=== PATIENT | male | born 1975 | race Caucasian/White ===

== ENCOUNTER 2020-09-10 09:09 | Inpatient (IN) | payer BC, SELFPAY ==
[2020-09-10 09:15] VITALS: BP 120/84; PULSE 97; RESP 18; TEMP 36.2; O2SAT 97; BMI 30.2
--- NOTE | 2020-09-10 09:56 | ED_ITS ---
HPI - Psych General Chief Complaint: Psychiatric Symptoms Stated Complaint: CRISIS Time Seen by Provider: 09/10/20 09:50 History of Present Illness HPI Narrative: Patient comes to the emergency room complaining of worsening anxiety and depression. Patient states that he has vague suicidal thoughts, states that he would really like to hurt himself but has no plan. Patient states he started sertraline approximately 4 weeks ago and is not sure if the medication is working. Some days he feels well but sometimes he feels depressed as today. Patient states he has had prior suicidal attempts in the past. Patient states he is compliant with his medication, occasionally forgets but ta kes his meds almost daily. Related Data Allergies Allergy/AdvReac Type Severity Reaction Status Date / Time No Known Allergies Allergy Verified 09/10/20 09:18 [No Known Allergies*] Review of Systems Review of Systems: Constitutional : No Weight loss, No Fever, No Chills, No Night Sweats, No Fatigue, No Malaise ENT/Mouth : No Hearing loss, No Ear Pain, No Nasal Congestion, No Sinus Pain, No Hoarseness, No sore throat, No Rhinorrhea, No Swallowing Difficulty Eyes: No Eye Pain, No Swelling, No Redness, No Foreign Body, No Discharge, No Vision Changes Cardiovascular : No Chest Pain, No SOB, No Dyspnea on Exertion, No Orthopnea, No Edema, No Palpitations Respiratory : No Cough, No Sputum, No Wheezing, No Smoke Exposure, No Dyspnea Gastrointestinal : No Nausea, No Vomiting, No Diarrhea, No Constipation, No abdominal Pain, No Hematochezia, No Melena Genitourinary : no irregular bleeding, No Dysuria, No Urinary Frequency, No Hematuria, No Urinary Incontinence, No Urgency, No Flank Pain, No Urinary Flow Changes, No Hesitancy Musculoskeletal : No joint pain, No Myalgias, No Joint Swelling Skin : No Skin Lesions, No rash Neuro : No Weakness, No Numbness, No Paresthesias, No Loss of Consciousness, No Dizziness, No Headache Psych : Complaining of anxiety and depression, no homicidal ideation Heme/Lymph: No Bruising, No Bleeding,No Lymphadenopathy Endocrine : No Polyuria, No Polydipsia, No Temperature Intolerance PMFSH Past Medical History Medical History Depression Diabetes Social History Social History Advance Directives: Yes Advance Directives Information Provided: Yes Advance Directives on File: No Physical Exam Vital Signs: Vital Signs: Last Vital Signs Temp 97.1 F 09/10/20 09:15 Pulse 97 09/10/20 09:15 Resp 18 09/10/20 09:15 BP 120/84 09/10/20 09:15 Pulse Ox 97 09/10/20 09:15 Body Mass Index 30.2 Appearance: Alert. Oriented X3. No acute distress. Eyes: Pupils equal, round and reactive to light. ENT: Pharynx normal. Neck: Normal inspection. Neck supple. No lymph nodes noted. No crepitus CVS: Normal heart rate and rhythm. Pulses normal. Normal S1 and S2 Respiratory: No respiratory distress. Breath sounds normal. No Wheezing. No rales Abdomen: Soft and nontender. No rigidity. No distention. good BS x4 Skin: Skin warm and dry. Normal skin color. Normal skin turgor. Extremities: No lower extremity edema. No lower extremity edema. No Lacerations. No Rash Neuro: Oriented X 3. Cranial nerves 2-12 grossly intact. No motor deficit. No sensory deficit. Moving all extermities. No slurred speech. Psych: Normal speech, normal train of thought Course Course Course Narrative: Behavioral health network consult pending At this time physician supervision is started, behavioral health at work consult pending.
[2020-09-10 10:08] VITALS: BP 103/66; PULSE 86; TEMP 36.7; O2SAT 97
[2020-09-10 10:40] LABS: Glucose Urine UA >=1000 MG/DL (NEG); Leukocyte Esterase Urine NEG (NEG); Nitrite Urine NEG (NEG); Urine Blood NEG (NEG); Urine Ketones 15 MG/DL (NEG); Urine Protein TRACE MG/DL (NEG-TRACE)
[2020-09-10 10:42] LABS: Appearance Urine CLEAR; Color Urine YELLOW
[2020-09-10 10:48] LABS: RBC Urine 0 /HPF (0); WBC Urine 0 /HPF (0-4)
--- NOTE | 2020-09-10 10:50 | PC.NURSE ---
spoke with Kayden from CARE team, a member of the team will be over to assess the pt.
--- NOTE | 2020-09-10 10:51 | PC.NURSE ---
PT BELONGINGS IN LOCKER 10 - pt cell phone with g/f, he monitors his insulin through his phone with a sensor in his L upper arm. Dr. Zapata oked the sensor to stay on the pt.
[2020-09-10] MEDS: Acetaminophen 325 MG TABLET 650 MG PO (11:00)
[2020-09-10 11:12] LABS: Amphetamine Screen Urine Not Detected (Not Detect); Barbiturates, Urine Not Detected (Not Detect); Benzodiazepines Screen Urine Not Detected (Not Detect); Cannabinoid Screen Urine Not Detected (Not Detect); Cocaine Screen Urine Not Detected (Not Detect); Opiate Screen Urine Not Detected (Not Detect); Phencyclidine Screen Urine Not Detected (Not Detect)
[2020-09-10 14:32] VITALS: BP 109/73; PULSE 80; O2SAT 96
--- NOTE | 2020-09-10 14:38 | MHC.CARE ---
CARE Team evaluated patient in ED 6, the recommendation is for inpatient psychiatric care. At this time he is in agreement and there will be an available bed for him here tomorrow, if he changes his mind and wants to leave then a CARE swat team member can talk to patient and his to conduct a safety plan. Providers updated and in agreement with this plan.
--- NOTE | 2020-09-10 15:09 | PHA.MEDREC ---
Pharmacy Consult ? Medication Reconciliation Pharmacy has completed the medication reconciliation.
[2020-09-10 16:34] VITALS: BP 117/61; PULSE 99; RESP 18; TEMP 36.7; O2SAT 95
[2020-09-10 18:53] VITALS: BP 109/62; PULSE 91; RESP 16; TEMP 37.1; O2SAT 95
--- NOTE | 2020-09-10 19:15 | PC.NURSE ---
ASSUMED CARE OF PT. PT REQUESTING PAULA PATRICIA. PT DENIES ANY OTHER COMPLAINTS. RESPIRATIONS EASY, N/L. PT REMAINS CALM AND COOPERATIVE IN ED. WILL CONTINUE TO MONITOR PT.
--- NOTE | 2020-09-10 22:00 | PC.NURSE ---
PT RESTING IN STRETCHER WATCHING TV. PT DENIES COMPLAINTS, SITTER AT BEDSIDE FOR OBS. WILL CONTINUE TO MONITOR PT.
[2020-09-10 22:24] VITALS: BP 114/68; PULSE 72; RESP 16; O2SAT 96
[2020-09-11] VITALS (8 sets, daily range): BP systolic 109–139; BP diastolic 70–84; PULSE 70–108; RESP 16–18; TEMP 36.7–36.9; O2SAT 97–98
--- NOTE | 2020-09-11 00:39 | PC.NURSE ---
PT SLEEPING AT THIS TIME WITH SITTER AT BEDSIDE WITH PT.
--- NOTE | 2020-09-11 02:28 | PC.NURSE ---
PT RESTING, WAKES TO VOICE W/O COMPLAINTS. WILL CONTINUE TO MONITOR PT.
--- NOTE | 2020-09-11 07:23 | PC.NURSE ---
Patient is lying in bed watching tv in no distress. Pt denies any SI, or HI this morning.
--- NOTE | 2020-09-11 09:17 | PC.NURSE ---
Patient is lying in bed watching tv in no distress
[2020-09-11] MEDS: Sertraline HCL 100 MG TABLET PO (10:09)
--- NOTE | 2020-09-11 10:53 | ECG_ITS ---
Test Reason : MEDICAL CLEARANCE Blood Pressure : / mmHG Vent. Rate : 081 BPM Atrial Rate : 081 BPM P-R Int : 140 ms QRS Dur : 088 ms QT Int : 370 ms P-R-T Axes : 055 049 016 degrees QTc Int : 429 ms Normal sinus rhythm with sinus arrhythmia Normal ECG No significant changes when compared with the previous EKG of 22 jan 2019 Referred By: Scott Herrera Electronically Signed By:JORGITO MORTON
[2020-09-11 11:15] LABS: MANUAL DIFF FLAG NO
[2020-09-11 11:17] LABS: Basophils Percent Auto 0.3 % (0-2); Eosinophils Absolute Auto 0.1 X10*3/uL (0.0-0.4); Eosinophils Percent Auto 0.7 % (0-4); Hematocrit 49.1 % (42-52); Hemoglobin 16.2 g/dl (14.0-18.0); Imm Gran Abs Auto 0.03 X10*3/uL (0.00-0.03); Imm Gran Pct Auto 0.3 % (0.0-0.4); Lymphocytes Absolute Auto 2.2 X10*3/uL (1.2-4.9); Mean Corpuscular Hemoglobin 27.7 pg (27.0-33.0); Mean Corpuscular Volume 84.1 fL (80-98); Mean Platelet Volume 9.9 fL (9.4-12.4); Monocytes Absolute Auto 0.7 X10*3/uL (0.1-1.2); Monocytes Percent Auto 7.8 % (2-11); Neutrophils Absolute Auto 5.8 X10*3/uL (2.0-8.3); Neutrophils Percent Auto 65.9 % (45-73); Platelet Count 268 X10*3/uL (160-400); Red Blood Count 5.84 X10*6/uL (4.60-5.80); Red Cell Distribution Width 12.3 % (11.0-16.0); White Blood Count 8.8 X10*3/uL (4.8-10.8)
[2020-09-11 11:41] LABS: Alanine Aminotransferase 21 U/L (0-40); Albumin Level 4.7 g/dL (3.5-5.0); Alkaline Phosphatase 100 U/L (39-117); Anion Gap 15 (12-20); Aspartate Amino Transferase 19 U/L (5-37); Bilirubin Total 0.9 mg/dL (0.0-1.0); Blood Urea Nitrogen 15 mg/dL (9-16); Calcium 10.1 mg/dL (8.4-10.2); Carbon Dioxide 25 mmol/L (22-29); Chloride 103 mmol/L (96-108); Creatinine Clr Calc Pharmacy 103.8; Estimated Glomerular Filt Rate > 60; Glucose Random 155 mg/dL (60-115); Potassium 4.2 mmol/L (3.3-5.1); Sodium 139 mmol/L (135-145); Total Protein 8.1 g/dL (6.5-8.0)
--- NOTE | 2020-09-11 12:04 | PC.NURSE ---
Son at bedside and has brought patients weekly dose of Trulicity. ED provider is aware and verbally aproves of patient given himself the injection. Pt administered 0.75mg or trulicity subcu in right upper arm
[2020-09-11 12:06] LABS: COVID-19 Test Negative (Negative); IDNOW Serial# 9DD0AD1C
--- NOTE | 2020-09-11 12:20 | PC.NURSE ---
Nurse to Nurse report given for patient to be moved to behavioral health unit.
--- NOTE | 2020-09-11 13:16 | PC.NURSE ---
Patient is lying in bed watching tv in no distress. Pt is calm and cooperative.
--- NOTE | 2020-09-11 14:17 | PC.NURSE ---
Care team here to transport patient to room 324 via wheelchair. Pt is alert and in no distress.
--- NOTE | 2020-09-11 15:40 | PC.ADMIT ---
PT admitted to unit at 1420 on a conditional voluntary for major depressive disorder and anxiety. PT states that he just wants to take some time and work on himself and how he is feeling. PT reported passive SI with no plan. Pt states that his anxiety and depression have been increasing and that he started sertraline 1 month ago and states that he does not think it is helping. PT states this is his first inpatient admission. PT asked if he would be leaving on Tuesday, when inpaitent process explained PT stated that he was told he would only be here until Tuesday, PT was offered a 3 day letter and declined to sign it stating that he wants to leave at this time. PT is covid negative, tox screen was negative. 15 minute checks initiated
[2020-09-11] MEDS: traZODone HCL 50 MG TABLET PO (20:46)
[2020-09-11] MEDS: Atorvastatin Calcium 20 MG TABLET PO (20:46)
[2020-09-11] MEDS: QUEtiapine Fumarate 25 MG TABLET PO (20:46)
--- NOTE | 2020-09-11 21:55 | PC.NURSE ---
Pt requested to and signed a 3 day notice, which will be up on 09/16. Pt verbalized understanding of form.
[2020-09-12 06:37] LABS: Glucose, Whole Blood 188 mg/dL (60-115)
[2020-09-12 07:11] LABS: Estimated Average Glucose 180 mg/dL; Hemoglobin A1c % 7.9 %
[2020-09-12 07:29] LABS: Alanine Aminotransferase 19 U/L (0-40); Albumin Level 4.6 g/dL (3.5-5.0); Alkaline Phosphatase 97 U/L (39-117); Aspartate Amino Transferase 16 U/L (5-37); Bilirubin Direct 0.4 mg/dL (0.0-0.5); Bilirubin Total 0.9 mg/dL (0.0-1.0); Cholesterol 144 mg/dL; HDL Cholesterol 39 mg/dL; LDL Cholesterol Calculated 85 mg/dl; Total Protein 7.8 g/dL (6.5-8.0); Triglycerides 101 mg/dL
[2020-09-12 07:50] LABS: Free T4 (Free Thyroxine) 0.92 ng/dL (0.71-1.85); Thyroid Stimulating Hormone 0.69 uIU/mL (0.32-4.0)
[2020-09-12 08:02] LABS: Folate 15.9 ng/mL (> or = 4.0); Vitamin B12 250 pg/mL (200-900)
[2020-09-12 08:53] VITALS: BP 118/74; PULSE 81; RESP 18; TEMP 36.8; O2SAT 98
[2020-09-12 08:56] VITALS: BP 118/74; PULSE 81
[2020-09-12] MEDS: Sertraline HCL 100 MG TABLET PO (08:56)
[2020-09-12 09:52] VITALS: BP 118/74; PULSE 81; RESP 18; TEMP 36.8; O2SAT 98
--- NOTE | 2020-09-12 14:07 | P.HPPS_ITS ---
HPI Chief Complaint: SI Sources of Information: patient interviewed, chart reviewed and crisis/core team assessment reviewed HPI Subjective Notes: 3 Day Narrative: Mr. Angel is a 45 year-old male with hx of MDD who self presented to [facility] ED reporting increased depression, feeling restless, suicidal ideation, feeling worthless. In the ED, his utox was negative. On the unit, Pt reports depression started about 2 years ago. He reports most recently he has been increasingly feeling inadequate or not doing enough for his family despite family telling him that he is caring and father. He reports he has a daughter with whom he had little contact growing up and this daughter came about 4 years ago to live with him but then she did not last more than a month with him and she left and it's been 4 years that he does not know how she is doing. He can't identify any recent stressors. He reports his relationship with his of 22 years is great. He reports his is supportive and caring. They have a 19 year-old son who lives with them and he is doing fine. He denies hx of substance use. He also denies hx of VH/AH. He denies signs of hypomania such as periods of time with increase energy, decrease need for sleep, engaging in risky behaviors, elated mood, or grandiose delusions. He has a stable job where he has been for past 3 years. He was somewhat irritable and upset when first brought to unit because he did not have a single room, felt he was lied to while in ED due to informaiton he was given. He was asking for discharged and minimizing degree of depression. He recently started sertraline Past Psychiatric History: OP: PETRA Padron at [facility] IP: none Suicide attempts: per few weeks ago tried to jump off moving car. Past medication trials: sertraline Medical Evaluation Reviewed: Yes [facility] Medical History Depression Diabetes Family History: none Social History: lives with of 22 years. He has two daughters from previous relationships ages 29 and 23 (doesn't have communication with 23 y/o) and son age 19 with current . Substance History: denies Trauma History: denies Diagnostics Vital Signs (24Hr): Vital Signs - 24 hr 09/11/20 14:49 09/11/20 20:48 09/12/20 08:53 Temperature 98.5 F 98.1 F 98.3 F Pulse Rate 108 H 93 81 Respiratory Rate 18 18 Blood Pressure 135/77 132/84 118/74 Pulse Oximetry 97 97 98 09/12/20 08:56 09/12/20 09:52 Temperature 98.3 F Pulse Rate 81 81 Respiratory Rate 18 Blood Pressure 118/74 118/74 Pulse Oximetry 98 Body Mass Index 30.2 Labs Results: 09/11/20 11:12 09/11/20 11:12 Labs: Laboratory Results - last 48 hr 09/11/20 09/11/20 09/11/20 11:12 11:12 11:46 WBC 8.8 RBC 5.84 H Hgb 16.2 Hct 49.1 MCV 84.1 MCH 27.7 MCHC 33.0 RDW 12.3 Plt Count 268 MPV 9.9 Immature Gran % (Auto) 0.3 Neut % (Auto) 65.9 Lymph % (Auto) 25.0 [place] % (Auto) 7.8 Eos % (Auto) 0.7 Baso % (Auto) 0.3 Lymph # (Auto) 2.2 [place] # (Auto) 0.7 Eos # (Auto) 0.1 Baso # (Auto) 0.0 Abs Immat Gran (auto) 0.03 Absolute Neuts (auto) 5.8 Absolute Nucleated RBC 0.000 Nucleated RBC % (auto) 0.0 Sodium 139 Potassium 4.2 Chloride 103 Carbon Dioxide 25 Anion Gap 15 BUN 15 Creatinine 0.98 Estim Creat Clear Calc 103.8 Estimated GFR > 60 POC Glucose Random Glucose 155 H Estimat Average Glucose Hemoglobin A1c % Calcium 10.1 Total Bilirubin 0.9 Direct Bilirubin AST 19 ALT 21 Alkaline Phosphatase 100 Total Protein 8.1 H Albumin 4.7 Triglycerides Cholesterol LDL Cholesterol, Calc HDL Cholesterol Vitamin B12 Folate TSH Free T4 COVID-19 ([facility]ONARDO) Negative COVID-19 Clin Com See Note 09/12/20 09/12/20 09/12/20 06:33 06:53 06:53 WBC RBC Hgb Hct MCV MCH MCHC RDW Plt Count MPV Immature Gran % (Auto) Neut % (Auto) Lymph % (Auto) [place] % (Auto) Eos % (Auto) Baso % (Auto) Lymph # (Auto) [place] # (Auto) Eos # (Auto) Baso # (Auto) Abs Immat Gran (auto) Absolute Neuts (auto) Absolute Nucleated RBC Nucleated RBC % (auto) Sodium Potassium Chloride Carbon Dioxide Anion Gap BUN Creatinine Estim Creat Clear Calc Estimated GFR POC Glucose 188 H Random Glucose Estimat Average Glucose 180 Hemoglobin A1c % 7.9 Calcium Total Bilirubin 0.9 Direct Bilirubin 0.4 AST 16 ALT 19 Alkaline Phosphatase 97 Total Protein 7.8 Albumin 4.6 Triglycerides 101 Cholesterol 144 LDL Cholesterol, Calc 85 HDL Cholesterol 39 Vitamin B12 Folate TSH 0.69 Free T4 0.92 COVID-19 ([facility]ONARDO) COVID-19 [employer] Com 09/12/20 06:53 WBC RBC Hgb Hct MCV MCH MCHC RDW Plt Count MPV Immature Gran % (Auto) Neut % (Auto) Lymph % (Auto) [place] % (Auto) Eos % (Auto) Baso % (Auto) Lymph # (Auto) [place] # (Auto) Eos # (Auto) Baso # (Auto) Abs Immat Gran (auto) Absolute Neuts (auto) Absolute Nucleated RBC Nucleated RBC % (auto) Sodium Potassium Chloride Carbon Dioxide Anion Gap BUN Creatinine Estim Creat Clear Calc Estimated GFR POC Glucose Random Glucose Estimat Average Glucose Hemoglobin A1c % Calcium Total Bilirubin Direct Bilirubin AST ALT Alkaline Phosphatase Total Protein Albumin Triglycerides Cholesterol LDL Cholesterol, Calc HDL Cholesterol Vitamin B12 250 Folate 15.9 TSH Free T4 COVID-19 ([facility]ONARDO) COVID-19 [employer] Com Meds/Allergies Meds Home Medications Acetaminophen (Acetaminophen 325 Mg Tablet) 650 mg PO Q6H PRN PRN Reason: Headache/Pain Mild Scale (1-3) Al Hydroxide/Mg Hydroxide (Magnesium Hydrox/Alum Hydrox 30 Ml Oral.Susp) 30 ml PO Q6H PRN PRN Reason: Heartburn/Nausea Albuterol Sulfate (Albuterol Sulfate 90 Mcg 8 Gm Inhaler) 2 puff INHALE QID PRN PRN Reason: wheezing Atorvastatin Calcium (Atorvastatin Calcium 20 Mg Tablet) 20 mg PO BEDTIME MIRIAN Last Admin: 09/11/20 20:46 Dose: 20 mg Documented by: Hydroxyzine HCl (Hydroxyzine Hcl 25 Mg Tablet) 25 mg PO Q6H PRN PRN Reason: Anxiety Lisinopril (Lisinopril 5 Mg Tablet) 5 mg PO DAILY MIRIAN; Protocol Last Admin: 09/12/20 08:56 Dose: 5 mg Documented by: Magnesium Hydroxide (Milk Of Magnesia 30 Ml Oral.Susp) 30 ml PO DAILY PRN PRN Reason: Constipation Non-Formulary Medication (Empagliflozin [Jardiance]) 1 tab PO DAILY [facility] Pharmacy Consult (Consult Rx Perform Med Rec) 1 each MISCELLANE ONCE PRN PRN Reason: Consult order Quetiapine Fumarate (Quetiapine Fumarate 25 Mg Tablet) 25 mg PO BEDTIME [facility] Last Admin: 09/11/20 20:46 Dose: 25 mg Documented by: Sertraline HCl (Sertraline Hcl 100 Mg Tablet) 100 mg PO DAILY [facility] Last Admin: 09/12/20 08:56 Dose: 100 mg Documented by: Trazodone HCl (Trazodone Hcl 50 Mg Tablet) 50 mg PO BEDTIME PRN PRN Reason: Insomnia Last Admin: 09/11/20 20:46 Dose: 50 mg Documented by: Allergies Allergies Allergy/AdvReac Type Severity Reaction Status Date / Time No Known Allergies Allergy Verified 09/10/20 09:18 [No Known Allergies*] Mental Status Exam Mental Status Exam Narrative: Appearance: casually groomed, fair hygiene in NAD Behavior:cooperative psychomotor:no agitation or retardation noted Speech:clear, normal rate/rhythm/volume, spontaneous Thought process:linear Thought content:no signs of psychosis, wanting to go home, feeling better Mood: better Affect: brighter, non labile SI:denies HI:none VH/AH:none Delusions:none Memory/cog: alert, oriented x 3. grossly intact to conversational testing. Assessment & Plan Assessment & Plan (1) MDD (major depressive disorder), recurrent episode, moderate: Status: Acute Code(s): F33.1 - Major depressive disorder, recurrent, moderate Assessment and Plan: Mr. Angel is a 45 year-old male who self presented to [facility] ED reporting increase depression, suicidal ideation, anxious. Some degree of irritability, impulsivity noted. This is his first inpatient psychiatric admission. We discussed risks, benefits alternative treatment options. PLAN 1. increase sertraline to 100mg po daily. 2. obtain collateral information 3. aftercare planning. Reason for continued inpatient stay Substantial Risk for: harm to self
[2020-09-12 20:05] VITALS: BP 121/78; PULSE 95; RESP 18; TEMP 36.6; O2SAT 95
[2020-09-12] MEDS: Atorvastatin Calcium 20 MG TABLET PO (21:34)
[2020-09-12] MEDS: QUEtiapine Fumarate 50 MG TABLET PO (21:34)
[2020-09-12] MEDS: traZODone HCL 50 MG TABLET PO (21:34)
[2020-09-12 21:45] LABS: Glucose, Whole Blood 180 mg/dL (60-115)
[2020-09-13 08:00] VITALS: BP 123/74; PULSE 84; RESP 16; TEMP 36.8; O2SAT 97
[2020-09-13 09:18] VITALS: BP 123/74; PULSE 100
[2020-09-13] MEDS: Sertraline HCL 100 MG TABLET PO (09:18)
[2020-09-13 10:26] LABS: Glucose, Whole Blood 253 mg/dL (60-115)
--- NOTE | 2020-09-13 19:42 | P.PNPSI_ITS ---
Subjective Subjective Date of Service: 09/13/20 Reason For Visit: SI Subjective Notes: Conditional Voluntary Guardianship: No Medical Problems Affecting Mental Status: No Interim History: Patient seen. DW team. Patient reports he is feeling happy. He says his son was approached by the [employer] to pitch. He is in college now. Patient says this piece of news made him very happy. He says he would like to leave. DW patient that he had just arrived and he will need to be observed. He had signed a 3 day notice. He is reported to minimize his symptoms. He denies SI/HI. Medication Compliance: Yes Side effects from medications: No Attending Groups: No Review of Systems Acute medical concerns: No Medical Review of Systems: unchanged Review of Systems Review of Systems Yes all other systems are reviewed and are negative Mental Status Exam Mental Status Exam Patient Appearance: Well Grooomed and Appropriate Patient Orientation: Person, Place, Time and Situation Level of Consciousness: Awake Patient Behavior: Appropriate, Cooperative and Good Eye Contact Mood Description: Calm, Happy and Cheerful Affect Description: Happy and Appropriate Patient Cognition Impaired: No Ability to Follow Directions: Good Speech Pattern: Clear, Appropriate and Coherent Memory Description: Intact Hallucinations: None Delusions: Not Present Thought Process: Intact, Goal Oriented and Linear Thought Content: positive for Intact, positive for Linear and positive for Suicidal Ideation Judgement: Fair Diagnostics Vital Signs (24Hr): Vital Signs - 24 hr 09/12/20 20:05 09/13/20 08:00 09/13/20 09:18 Temperature 97.9 F 98.2 F Pulse Rate 95 84 100 Respiratory Rate 18 16 Blood Pressure 121/78 123/74 123/74 Pulse Oximetry 95 97 Body Mass Index 30.2 Labs Results: 09/11/20 11:12 09/11/20 11:12 Labs: Laboratory Results - last 48 hr 09/12/20 09/12/20 09/12/20 06:33 06:53 06:53 POC Glucose 188 H Estimat Average Glucose 180 Hemoglobin A1c % 7.9 Total Bilirubin 0.9 Direct Bilirubin 0.4 AST 16 ALT 19 Alkaline Phosphatase 97 Total Protein 7.8 Albumin 4.6 Triglycerides 101 Cholesterol 144 LDL Cholesterol, Calc 85 HDL Cholesterol 39 Vitamin B12 Folate TSH 0.69 Free T4 0.92 09/12/20 09/12/20 09/13/20 06:53 21:33 10:23 POC Glucose 180 H 253 H Estimat Average Glucose Hemoglobin A1c % Total Bilirubin Direct Bilirubin AST ALT Alkaline Phosphatase Total Protein Albumin Triglycerides Cholesterol LDL Cholesterol, Calc HDL Cholesterol Vitamin B12 250 Folate 15.9 TSH Free T4 Medications Medications Current Medications Generic Name Dose Route Start Last Admin Trade Name Freq PRN Reason Stop Dose Admin Acetaminophen 650 mg 09/11/20 13:09 Acetaminophen 325 Mg Tablet PO Q6H PRN Headache/Pain Mild Scale (1-3) Al Hydroxide/Mg Hydroxide 30 ml 09/11/20 13:09 Magnesium Hydrox/Alum Hydrox 30 Ml Oral.Susp PO Q6H PRN Heartburn/Nausea Albuterol Sulfate 2 puff 09/11/20 09:28 Albuterol Sulfate 90 Mcg 8 Gm Inhaler INHALE QID PRN wheezing Atorvastatin Calcium 20 mg 09/11/20 21:00 09/12/20 21:34 Atorvastatin Calcium 20 Mg Tablet PO 20 mg BEDTIME MIRIAN Administration Hydroxyzine HCl 25 mg 09/11/20 13:09 Hydroxyzine Hcl 25 Mg Tablet PO Q6H PRN Anxiety Lisinopril 5 mg 09/11/20 10:00 09/13/20 09:18 Lisinopril 5 Mg Tablet PO 5 mg DAILY MIRIAN Administration Protocol Magnesium Hydroxide 30 ml 09/11/20 13:09 Milk Of Magnesia 30 Ml Oral.Susp PO DAILY PRN Constipation Non-Formulary Medication 1 tab 09/11/20 09:30 Empagliflozin [Jardiance] PO DAILY [facility] Pharmacy Consult 1 each 09/10/20 14:52 Consult Rx Perform Med Rec MISCELLANE ONCE PRN Consult order Quetiapine Fumarate 50 mg 09/12/20 21:00 09/12/20 21:34 Quetiapine Fumarate 50 Mg Tablet PO 50 mg BEDTIME MIRIAN Administration Sertraline HCl 100 mg 09/11/20 09:30 09/13/20 09:18 Sertraline Hcl 100 Mg Tablet PO 100 mg DAILY MIRIAN Administration Trazodone HCl 50 mg 09/11/20 13:09 09/12/20 21:34 Trazodone Hcl 50 Mg Tablet PO 50 mg BEDTIME PRN Administration Insomnia Allergies Allergies Allergy/AdvReac Type Severity Reaction Status Date / Time No Known Allergies Allergy Verified 09/10/20 09:18 [No Known Allergies*] Assessment & Plan Assessment & Plan (1) MDD (major depressive disorder), recurrent episode, moderate: Status: Acute Code(s): F33.1 - Major depressive disorder, recurrent, moderate Assessment and Plan: Mr. Angel is a 45 year-old male who self presented to [facility] ED reporting increase depression, suicidal ideation, anxious. Some degree of irritability, impulsivity noted. This is his first inpatient psychiatric admission. We discussed risks, benefits alternative treatment options. PLAN 1. Continue Zoloft 100 mg daily. 2. obtain collateral information 3. aftercare planning. Greater than 50% of the session was spent on counseling and/or coordination of care Reason for contiued inpatient stay Substantial Risk for: harm to self
[2020-09-13 20:50] VITALS: BP 117/74; PULSE 82; RESP 16; TEMP 36.3; O2SAT 98
[2020-09-13 21:11] LABS: Glucose, Whole Blood 217 mg/dL (60-115)
[2020-09-13] MEDS: QUEtiapine Fumarate 50 MG TABLET PO (21:14)
[2020-09-13] MEDS: Atorvastatin Calcium 20 MG TABLET PO (21:14)
[2020-09-14 06:00] VITALS: BP 121/74; PULSE 84; RESP 16; TEMP 36.8; O2SAT 98
[2020-09-14 07:44] LABS: Glucose, Whole Blood 178 mg/dL (60-115)
[2020-09-14 09:06] VITALS: BP 121/74; PULSE 84
[2020-09-14] MEDS: Sertraline HCL 100 MG TABLET PO (09:06)
[2020-09-14 12:02] LABS: Glucose, Whole Blood 148 mg/dL (60-115)
--- NOTE | 2020-09-14 13:46 | P.PNPSI_ITS ---
Subjective Subjective Date of Service: 09/14/20 Reason For Visit: SI Subjective Notes: Conditional Voluntary and 3 Day Interim History: Patient seen. DW team. Patient reports he is feeling well. He has no complaints. He was having a visit with a family member. He is reported to minimize his symptoms. He denies SI/HI. Review of Systems Acute medical concerns: No Medical Review of Systems: unchanged Review of Systems Review of Systems Constitutional : No Weight loss, No Fever, No Chills, No Night Sweats, No Fa tigue, No Malaise ENT/Mouth : No Hearing loss, No Ear Pain, No Nasal Congestion, No Sinus Pain, No Hoarseness, No sore throat, No Rhinorrhea, No Swallowing Difficulty Eyes: No Eye Pain, No Swelling, No Redness, No Foreign Body, No Discharge, No Vision Changes Cardiovascular : No Chest Pain, No SOB, No Dyspnea on Exertion, No Orthopnea, No Edema, No Palpitations Respiratory : No Cough, No Sputum, No Wheezing, No Smoke Exposure, No Dyspnea Gastrointestinal : No Nausea, No Vomiting, No Diarrhea, No Constipation, No abdominal Pain, No Hematochezia, No Melena Genitourinary : no irregular bleeding, No Dysuria, No Urinary Frequency, No Hematuria, No Urinary Incontinence, No Urgency, No Flank Pain, No Urinary Flow Changes, No Hesitancy Musculoskeletal : No joint pain, No Myalgias, No Joint Swelling Skin : No Skin Lesions, No rash Neuro : No Weakness, No Numbness, No Paresthesias, No Loss of Consciousness, No Dizziness, No Headache Psych : Complaining of anxiety and depression, no homicidal ideation Heme/Lymph: No Bruising, No Bleeding,No Lymphadenopathy Endocrine : No Polyuria, No Polydipsia, No Temperature Intolerance Yes all other systems are reviewed and are negative Constitutional: Denies fatigue, Reports lethargy and Denies poor appetite Eyes: Denies no additional eye complaints Denies dizziness Cardiovascular: Denies chest pain, Denies epigastric discomfort, Denies lightheadedness and Denies dyspnea Respiratory: Denies chest congestion, Denies pain with cough and Denies dyspnea Musculoskeletal: Denies abnormal gait, Denies back pain and Denies atrophy Denies Abnormal speech present, Denies abnormal gait, Denies dizziness and Denies tremor(s) Psychiatric: Reports depression, Reports irritability and Reports anhedonia Endocrine: Denies no additional endocrine complaints and Denies fatigue Hematologic/Lymphatic: Denies no additional hematologic/lymphatic complaints Mental Status Exam Mental Status Exam Narrative: Appearance: casually groomed, fair hygiene in NAD Behavior:cooperative psychomotor:no agitation or retardation noted Speech:clear, normal rate/rhythm/volume, spontaneous Thought process:linear Thought content:no signs of psychosis, wanting to go home, feeling better Mood: better Affect: brighter, non labile SI:denies HI:none VH/AH:none Delusions:none Memory/cog: alert, oriented x 3. grossly intact to conversational testing. Patient Appearance: Well Grooomed and Appropriate Patient Orientation: Person, Place, Time and Situation Level of Consciousness: Awake Patient Behavior: Appropriate, Cooperative and Good Eye Contact Mood Description: Calm, Happy and Cheerful Affect Description: Happy and Appropriate Patient Cognition Impaired: No Ability to Follow Directions: Good Speech Pattern: Clear, Appropriate and Coherent Memory Description: Intact Judgement: Fair Diagnostics Vital Signs (24Hr): Vital Signs - 24 hr 09/13/20 20:50 09/14/20 06:00 09/14/20 09:06 Temperature 97.3 F 98.2 F Pulse Rate 82 84 84 Respiratory Rate 16 16 Blood Pressure 117/74 121/74 121/74 Pulse Oximetry 98 98 Body Mass Index 30.2 Labs Results: 09/11/20 11:12 09/11/20 11:12 Labs: Laboratory Results - last 48 hr 09/12/20 09/13/20 09/13/20 21:33 10:23 21:07 POC Glucose 180 H 253 H 217 H 09/14/20 09/14/20 07:39 11:59 POC Glucose 178 H 148 H Medications Medications Current Medications Generic Name Dose Route Start Last Admin Trade Name Freq PRN Reason Stop Dose Admin Acetaminophen 650 mg 09/11/20 13:09 Acetaminophen 325 Mg Tablet PO Q6H PRN Headache/Pain Mild Scale (1-3) Al Hydroxide/Mg Hydroxide 30 ml 09/11/20 13:09 Magnesium Hydrox/Alum Hydrox 30 Ml Oral.Susp PO Q6H PRN Heartburn/Nausea Albuterol Sulfate 2 puff 09/11/20 09:28 Albuterol Sulfate 90 Mcg 8 Gm Inhaler INHALE QID PRN wheezing Atorvastatin Calcium 20 mg 09/11/20 21:00 09/13/20 21:14 Atorvastatin Calcium 20 Mg Tablet PO 20 mg BEDTIME MIRIAN Administration Hydroxyzine HCl 25 mg 09/11/20 13:09 Hydroxyzine Hcl 25 Mg Tablet PO Q6H PRN Anxiety Lisinopril 5 mg 09/11/20 10:00 09/14/20 09:06 Lisinopril 5 Mg Tablet PO 5 mg DAILY MIRIAN Administration Protocol Magnesium Hydroxide 30 ml 09/11/20 13:09 Milk Of Magnesia 30 Ml Oral.Susp PO DAILY PRN Constipation Pat Own Med ( 1 each 09/14/20 09:00 09/14/20 09:06 Jardiance 25mg) PO 1 each DAILY MIRIAN Administration Pharmacy Consult 1 each 09/10/20 14:52 Consult Rx Perform Med Rec MISCELLANE ONCE PRN Consult order Quetiapine Fumarate 50 mg 09/12/20 21:00 09/13/20 21:14 Quetiapine Fumarate 50 Mg Tablet PO 50 mg BEDTIME MIRIAN Administration Sertraline HCl 100 mg 09/11/20 09:30 09/14/20 09:06 Sertraline Hcl 100 Mg Tablet PO 100 mg DAILY MIRIAN Administration Trazodone HCl 50 mg 09/11/20 13:09 09/12/20 21:34 Trazodone Hcl 50 Mg Tablet PO 50 mg BEDTIME PRN Administration Insomnia Allergies Allergies Allergy/AdvReac Type Severity Reaction Status Date / Time No Known Allergies Allergy Verified 09/10/20 09:18 [No Known Allergies*] Assessment & Plan Assessment & Plan (1) MDD (major depressive disorder), recurrent episode, moderate: Status: Acute Code(s): F33.1 - Major depressive disorder, recurrent, moderate Assessment and Plan: Mr. Angel is a 45 year-old male who self [place] [facility] [place] increase depression, suicidal ideation, anxious. Some degree of irritability, impulsivity noted. This is his first inpatient psychiatric admission. We discussed risks, benefits alternative treatment options. PLAN 1. Continue Zoloft 100 mg daily. 2. obtain collateral information 3. aftercare planning. Greater than 50% of the session was spent on counseling and/or coordination of care Reason for contiued inpatient stay Substantial Risk for: harm to self
[2020-09-14 19:43] VITALS: BP 132/86; PULSE 94; TEMP 36.7; O2SAT 97
[2020-09-14 20:23] LABS: Glucose, Whole Blood 183 mg/dL (60-115)
[2020-09-14] MEDS: QUEtiapine Fumarate 50 MG TABLET PO (20:51)
[2020-09-14] MEDS: Atorvastatin Calcium 20 MG TABLET PO (20:51)
[2020-09-15 06:47] LABS: Glucose, Whole Blood 138 mg/dL (60-115)
[2020-09-15 08:13] VITALS: BP 126/73; PULSE 89
[2020-09-15] MEDS: Sertraline HCL 100 MG TABLET PO (08:13)
[2020-09-15 08:15] VITALS: BP 126/73; PULSE 89; RESP 16; TEMP 36.8; O2SAT 96
--- NOTE | 2020-09-15 10:43 | PM.PSYDC ---
DS: Providers Provider Date of Service: 09/15/20 Date of admission: 09/11/20 13:09 Date of discharge: 09/15/20 Primary care physician: Scarlett Lopes MD DS: Diagnosis Discharge Diagnosis (1) MDD (major depressive disorder), recurrent episode, moderate: Status: Acute DS: Medications Discharge Medications Home Medications: Home Medications Medication Instructions Recorded Confirmed albuterol sulfate 90 mcg/actuation 2 puff INHALATION QID PRN 09/10/20 09/10/20 aerosol inhaler atorvastatin 20 mg tablet 1 tab PO DAILY 09/10/20 09/10/20 dulaglutide 0.75 mg/0.5 mL 0.75 mg SUBCUT TH 09/10/20 09/10/20 subcutaneous pen injector (Trulicity) empagliflozin 25 mg tablet 1 tab PO DAILY 09/10/20 09/10/20 (Jardiance) lisinopril 5 mg tablet 1 tab PO DAILY 09/10/20 09/10/20 quetiapine 25 mg tablet 1 tab PO BEDTIME 09/10/20 09/10/20 sertraline 100 mg tablet 100 mg PO DAILY 09/10/20 09/10/20 Previous Rx's Medication Instructions Recorded trazodone 50 mg tablet 50 mg PO BEDTIME PRN #30 tab 09/15/20 Mental Status Exam Mental Status Exam Narrative: Well groomed, good hygiene, normal body habitus. Good eye contact, attentive. No Tics or Tremors. Calm, cooperative, engaged. Non-pressured speech. Mood is ?good,? affect is euthymic. Denies SI/SIB/HI upon inquiry. Denies A/VH or delusional thought content. Thoughts are coherent, organized. No known cognitive or memory impairment. Insight/ Judgment fair and adequate. No imminent safety concerns. Data Data Completed and Pending Completed studies during hospitalization [Text1]: 09/10/20 09/10/20 09/11/20 10:35 10:35 11:12 WBC 8.8 RBC 5.84 H Hgb 16.2 Hct 49.1 MCV 84.1 MCH 27.7 MCHC 33.0 RDW 12.3 Plt Count 268 MPV 9.9 Immature Gran % (Auto) 0.3 Neut % (Auto) 65.9 Lymph % (Auto) 25.0 [place] % (Auto) 7.8 Eos % (Auto) 0.7 Baso % (Auto) 0.3 Lymph # (Auto) 2.2 [place] # (Auto) 0.7 Eos # (Auto) 0.1 Baso # (Auto) 0.0 Abs Immat Gran (auto) 0.03 Absolute Neuts (auto) 5.8 Absolute Nucleated RBC 0.000 Nucleated RBC % (auto) 0.0 Sodium Potassium Chloride Carbon Dioxide Anion Gap BUN Creatinine Estim Creat Clear Calc Estimated GFR POC Glucose Random Glucose Estimat Average Glucose Hemoglobin A1c % Calcium Total Bilirubin Direct Bilirubin AST ALT Alkaline Phosphatase Total Protein Albumin Triglycerides Cholesterol LDL Cholesterol, Calc HDL Cholesterol Vitamin B12 Folate TSH Free T4 Urine Color YELLOW Urine Appearance CLEAR Urine pH 6.0 Ur Specific Barney 1.020 Urine Protein TRACE Urine Glucose (UA) >=1000 H Urine Ketones 15 Urine Blood NEG Urine Nitrite NEG Ur Leukocyte Esterase NEG Urine RBC 0 Urine WBC 0 Ur Squamous Epith Cells NONE Urine Bacteria NONE Urine Opiates Screen Not Detected Ur Barbiturates Screen Not Detected Ur Phencyclidine Scrn Not Detected Ur Amphetamines Screen Not Detected U Benzodiazepines Scrn Not Detected Urine Cocaine Screen Not Detected U Marijuana (THC) Screen Not Detected COVID-19 ([facility]) COVID-19 Clin Com 09/11/20 09/11/20 09/12/20 11:12 11:46 06:33 WBC RBC Hgb Hct MCV MCH MCHC RDW Plt Count MPV Immature Gran % (Auto) Neut % (Auto) Lymph % (Auto) [place] % (Auto) Eos % (Auto) Baso % (Auto) Lymph # (Auto) [place] # (Auto) Eos # (Auto) Baso # (Auto) Abs Immat Gran (auto) Absolute Neuts (auto) Absolute Nucleated RBC Nucleated RBC % (auto) Sodium 139 Potassium 4.2 Chloride 103 Carbon Dioxide 25 Anion Gap 15 BUN 15 Creatinine 0.98 Estim Creat Clear Calc 103.8 Estimated GFR > 60 POC Glucose 188 H Random Glucose 155 H Estimat Average Glucose Hemoglobin A1c % Calcium 10.1 Total Bilirubin 0.9 Direct Bilirubin AST 19 ALT 21 Alkaline Phosphatase 100 Total Protein 8.1 H Albumin 4.7 Triglycerides Cholesterol LDL Cholesterol, Calc HDL Cholesterol Vitamin B12 Folate TSH Free T4 Urine Color Urine Appearance Urine pH Ur Specific [place] Urine Protein Urine Glucose (UA) Urine Ketones Urine Blood Urine Nitrite Ur Leukocyte Esterase Urine RBC Urine WBC Ur Squamous Epith Cells Urine Bacteria Urine Opiates Screen Ur Barbiturates Screen Ur Phencyclidine Scrn Ur Amphetamines Screen U Benzodiazepines Scrn Urine Cocaine Screen U Marijuana (THC) Screen COVID-19 ([facility]) Negative COVID-19 Clin Com See Note 09/12/20 09/12/20 09/12/20 06:53 06:53 06:53 WBC RBC Hgb Hct MCV MCH MCHC RDW Plt Count MPV Immature Gran % (Auto) Neut % (Auto) Lymph % (Auto) [place] % (Auto) Eos % (Auto) Baso % (Auto) Lymph # (Auto) [place] # (Auto) Eos # (Auto) Baso # (Auto) Abs Immat Gran (auto) Absolute Neuts (auto) Absolute Nucleated RBC Nucleated RBC % (auto) Sodium Potassium Chloride Carbon Dioxide Anion Gap BUN Creatinine Estim Creat Clear Calc Estimated GFR POC Glucose Random Glucose Estimat Average Glucose 180 Hemoglobin A1c % 7.9 Calcium Total Bilirubin 0.9 Direct Bilirubin 0.4 AST 16 ALT 19 Alkaline Phosphatase 97 Total Protein 7.8 Albumin 4.6 Triglycerides 101 Cholesterol 144 LDL Cholesterol, Calc 85 HDL Cholesterol 39 Vitamin B12 250 Folate 15.9 TSH 0.69 Free T4 0.92 Urine Color Urine Appearance Urine pH Ur Specific [place] Urine Protein Urine Glucose (UA) Urine Ketones Urine Blood Urine Nitrite Ur Leukocyte Esterase Urine RBC Urine WBC Ur Squamous Epith Cells Urine Bacteria Urine Opiates Screen Ur Barbiturates Screen Ur Phencyclidine Scrn Ur Amphetamines Screen U Benzodiazepines Scrn Urine Cocaine Screen U Marijuana (THC) Screen COVID-19 ([facility]) COVID-19 Clin Com 09/12/20 09/13/20 09/13/20 21:33 10:23 21:07 WBC RBC Hgb Hct MCV MCH MCHC RDW Plt Count MPV Immature Gran % (Auto) Neut % (Auto) Lymph % (Auto) [place] % (Auto) Eos % (Auto) Baso % (Auto) Lymph # (Auto) [place] # (Auto) Eos # (Auto) Baso # (Auto) Abs Immat Gran (auto) Absolute Neuts (auto) Absolute Nucleated RBC Nucleated RBC % (auto) Sodium Potassium Chloride Carbon Dioxide Anion Gap BUN Creatinine Estim Creat Clear Calc Estimated GFR POC Glucose 180 H 253 H 217 H Random Glucose Estimat Average Glucose Hemoglobin A1c % Calcium Total Bilirubin Direct Bilirubin AST ALT Alkaline Phosphatase Total Protein Albumin Triglycerides Cholesterol LDL Cholesterol, Calc HDL Cholesterol Vitamin B12 Folate TSH Free T4 Urine Color Urine Appearance Urine pH Ur Specific [place]ney Urine Protein Urine Glucose (UA) Urine Ketones Urine Blood Urine Nitrite Ur Leukocyte Esterase Urine RBC Urine WBC Ur Squamous Epith Cells Urine Bacteria Urine Opiates Screen Ur Barbiturates Screen Ur Phencyclidine Scrn Ur Amphetamines Screen U Benzodiazepines Scrn Urine Cocaine Screen U Marijuana (THC) Screen COVID-19 ([facility]) COVID-19 Clin Com 09/14/20 09/14/20 09/14/20 07:39 11:59 20:19 WBC RBC Hgb Hct MCV MCH MCHC RDW Plt Count MPV Immature Gran % (Auto) Neut % (Auto) Lymph % (Auto) [place] % (Auto) Eos % (Auto) Baso % (Auto) Lymph # (Auto) [place] # (Auto) Eos # (Auto) Baso # (Auto) Abs Immat Gran (auto) Absolute Neuts (auto) Absolute Nucleated RBC Nucleated RBC % (auto) Sodium Potassium Chloride Carbon Dioxide Anion Gap BUN Creatinine Estim Creat Clear Calc Estimated GFR POC Glucose 178 H 148 H 183 H Random Glucose Estimat Average Glucose Hemoglobin A1c % Calcium Total Bilirubin Direct Bilirubin AST ALT Alkaline Phosphatase Total Protein Albumin Triglycerides Cholesterol LDL Cholesterol, Calc HDL Cholesterol Vitamin B12 Folate TSH Free T4 Urine Color Urine Appearance Urine pH Ur Specific [place] Urine Protein Urine Glucose (UA) Urine Ketones Urine Blood Urine Nitrite Ur Leukocyte Esterase Urine RBC Urine WBC Ur Squamous Epith Cells Urine Bacteria Urine Opiates Screen Ur Barbiturates Screen Ur Phencyclidine Scrn Ur Amphetamines Screen U Benzodiazepines Scrn Urine Cocaine Screen U Marijuana (THC) Screen COVID-19 ([facility]) COVID-19 Clin Com 09/15/20 06:43 WBC RBC Hgb Hct MCV MCH MCHC RDW Plt Count MPV Immature Gran % (Auto) Neut % (Auto) Lymph % (Auto) [place] % (Auto) Eos % (Auto) Baso % (Auto) Lymph # (Auto) [place] # (Auto) Eos # (Auto) Baso # (Auto) Abs Immat Gran (auto) Absolute Neuts (auto) Absolute Nucleated RBC Nucleated RBC % (auto) Sodium Potassium Chloride Carbon Dioxide Anion Gap BUN Creatinine Estim Creat Clear Calc Estimated GFR POC Glucose 138 H Random Glucose Estimat Average Glucose Hemoglobin A1c % Calcium Total Bilirubin Direct Bilirubin AST ALT Alkaline Phosphatase Total Protein Albumin Triglycerides Cholesterol LDL Cholesterol, Calc HDL Cholesterol Vitamin B12 Folate TSH Free T4 Urine Color Urine Appearance Urine pH Ur Specific [place] Urine Protein Urine Glucose (UA) Urine Ketones Urine Blood Urine Nitrite Ur Leukocyte Esterase Urine RBC Urine WBC Ur Squamous Epith Cells Urine Bacteria Urine Opiates Screen Ur Barbiturates Screen Ur Phencyclidine Scrn Ur Amphetamines Screen U Benzodiazepines Scrn Urine Cocaine Screen U Marijuana (THC) Screen COVID-19 ([facility]) COVID-19 Clin Com DS: Summary Hospital Course Hospital Course: Mr. Angel is a 45 year-old male with hx of MDD who self presented to [facility] [place] [facility] reporting increased depression, feeling restless, suicidal ideation, feeling worthless. In the ED, his utox was negative. This is his first inpatient psychiatric admission. He reported his OP prescriber had increased his sertraline to 100 mg QD at their last session, however he did not pick up worker the script. He increased his sertraline to 100 mg during this admission and reported positive benefit, denied adverse effects. He reported his mood has improved and he is sleeping well. Will continue with sertraline 100 mg QD to target symptoms of depression and anxiety and will continue seroquel 50 mg QD and trazodone 50 mg QHS PRN for treatment of insomnia. Status at Discharge Cognitive/behavioral status at discharge: In the milieue, he is safe and appropriate in his behaviors and attending groups. He reports he is feeling stable, denies sx of SI/SIB/HI upon inquiry today. Functional status at discharge: independent ambulation Overall status at discharge: patient is back to baseline Time Spent with Patient Time attestation: Total time spent providing and/or coordinating discharge services: Specific discharge activities: Follow up with OP med management and individual therapy. Discharge Plan Discharge Anticipated Discharge Date/Time: 09/15/20 10:16 Patient Disposition: Home, Self-Care Discharge Diagnosis: MDD, Recurrent episode Referrals: Scott Phelps (Therapy) [Other] - 09/18/20 9:45 am (Telehealth Appointment) Jeannie Vernon (psychiatry) [Other] - 10/15/20 11:00 am (Telehealth Appointment Psychiatric Evaluation) Jeannie Vernon (psychiatry) [Other] - 11/10/20 11:40 am (Telehealth Appointment Medication Management ) Scarlett Lopes MD [Primary Care Provider] - 1 Week Discharge Medications: New trazodone 50 mg Tablet 50 mg PO BEDTIME PRN (Reason: Insomnia) Qty: 30 RF: 0 Continued quetiapine 25 mg tablet 1 tab PO BEDTIME RF: 0 atorvastatin 20 mg tablet 1 tab PO DAILY RF: 0 sertraline 100 mg Tablet 100 mg PO DAILY RF: 0 lisinopril 5 mg tablet 1 tab PO DAILY RF: 0 albuterol sulfate 90 mcg/actuation HFA aerosol inhaler 2 puff inhalation QID PRN (Reason: wheezing) RF: 0 Jardiance 25 mg tablet 1 tab PO DAILY RF: 0 Trulicity 0.75 mg/0.5 mL pen injector 0.75 mg subcut TH RF: 0 Discharge Orders: Discharge Order (Routine); Ordered 09/15/20 Ordered By: Kiara Dela Cruz Diet: regular diet Activity on Discharge: As tolerated Stand Alone Forms: Patient Portal Discharge page, Community Support Care Plan Goals: Patient will continue with outpatient providers, has appointment with therapist Scott Phelps on 09/18/2020 and with OP prescriber Jeannie Vernon on 10/15/2020. Adrián will continue with medication plan of seroquel 50 mg QHS for insomnia and sertraline 100 mg QD for management of depressive symptoms and anxiety. Health Concerns: Continue management of non-insulin dependent diabetes mellitus, asthma, HTN, and high cholesterol with OP PCP. Plan of Treatment: 1. Continue zoloft 100 mg QD for symptoms of depression and anxiety and seroquel 50 mg QHS for management of insomnia. 2. Continue with OP psychiatric med management and therapy. Greater than 50% of the session was spent on counseling and/or coordination of care ? Assessment: Mr. Angel is a 45 year-old male with hx of MDD who self presented to [facility] [place] [facility] reporting increased depression, feeling restless, suicidal ideation, feeling worthless. In the ED, his utox was negative. Adrián was evaluated this morning and upon interview he stated his medications are working pretty good. Says he is sleeping well, reports his symptoms of anxiety and depression are low. Says he is feeling pretty good. He reports he feels safe, denies SI/SIB/HI upon inquiry today. He will follow up with OP providers. He has refills for all his medications. He reports positive benefit on trazodone 50 mg QHS PRN and script will be provided for this for 30 days to carry him over to his outpatient med management appointment on 10/15/2020.
--- NOTE | 2020-09-15 13:38 | PC.NURSE ---
PT aware and ready for discharge. PT denies SI/HI, reports mood is good, bright affect. Pt reports decreased anxiety, states being here and taking a break has helped. PT belongings returned, appointment are set, pt aware to follow up with PCP. Pt ambulated off unit with steady gait.
== END 2020-09-15 13:38 | disposition home or self-care (01) | DRG 751 ==
LOC: HO.ED 10:10 → HO.PADLT16 09-11 13:24
PROVIDERS: Physician Assistant; Admitting Provider Psychiatry & Neurology Psychiatry; Emergency Provider Emergency Medicine; PCP Internal Medicine; Visit Provider Social Worker
DX: F33.1 Major depressive disorder, recurrent, moderate (principal); R45.851 Suicidal ideations; E11.9 Type 2 diabetes mellitus without complications; Z20.822 Contact with and (suspected) exposure to COVID-19; Z79.899 Other long term (current) drug therapy
CPT/HCPCS: 36415; 80053; 80061; 80076; 80307; 81001; 82607; 82746; 82947; 83036; 84439; 84443; 85025; 87635; 93005; 99232; 99238; 99285